=== PATIENT | female | born 1960 | race Caucasian/White ===

== ENCOUNTER 2025-10-22 13:01 | Outpatient (RCR) | payer MEDICARE, SELFPAY | END 2025-10-26 23:59 | disposition home or self-care (01) | LOC: MPT 13:01 | PROVIDERS: Visit Provider Nurse Practitioner Family | DX: Z98.890 Other specified postprocedural states (principal) | CPT/HCPCS: 97110; 97140; 97162 ==

== ENCOUNTER 2025-11-25 13:47 | Outpatient (RCR) | payer MEDICARE, SELFPAY | END 2025-11-26 08:53 | disposition home or self-care (01) | LOC: MPT 13:47 | PROVIDERS: Visit Provider Nurse Practitioner Family | DX: Z47.1 Aftercare following joint replacement surgery (principal); Z96.612 Presence of left artificial shoulder joint | CPT/HCPCS: 97110 ==